=== PATIENT | male | born 1990 | race Caucasian/White ===

== ENCOUNTER 2018-04-17 11:23 | Emergency (ER) | payer OTHER ==
[~2018-04-17] VITALS: Ht 175.3 cm; Wt 95.0 kg
[2018-04-17] MEDS ORDERED: HYDROGEN PEROXIDE 118 ML SOLUTION TP ONE (12:45)
[2018-04-17] MEDS ORDERED: CARBAMIDE PEROXIDE 6.5% 15 ML OTIC SOLUTION AD ONE (12:45)
[2018-04-17 14:03] VITALS: BP 135/79
== END 2018-04-17 14:09 | disposition home or self-care (01) ==
LOC: EMS 11:24
DX: H61.21 Impacted cerumen, right ear (principal); R03.0 Elevated blood-pressure reading, without diagnosis of hypertension
CPT/HCPCS: 69209

== ENCOUNTER 2019-09-17 19:50 | Emergency (ER) | payer OTHER ==
[~2019-09-17] VITALS: Ht 175.3 cm; Wt 100.0 kg
[2019-09-17] MEDS ORDERED: DIPH25CA85 PO (20:00)
[2019-09-17] MEDS ORDERED: DOXYCYCLINE HYCLATE 100 MG CAPSULE PO ONE (20:45)
[2019-09-17] MEDS ORDERED: DiphenhydrAMINE HCL 25 MG CAPSULE PO ONE (20:45)
[2019-09-17] MEDS ORDERED: PERTUSS(ACELL),DIPH,TET VAC/PF 0.5 ML VIAL IM ONE (20:45)
[2019-09-17 21:30] VITALS: BP 135/82
== END 2019-09-17 22:12 | disposition home or self-care (01) ==
LOC: EMS 19:53
DX: L03.115 Cellulitis of right lower limb (principal)
CPT/HCPCS: 90471; 90715

== ENCOUNTER 2020-05-21 10:25 | Emergency (ER) | payer OTHER ==
[~2020-05-21] VITALS: Ht 170.2 cm; Wt 102.3 kg
[~2020-05-21 10:25] MED LIST: DIPH25CA85 PO
[2020-05-21 11:26] LABS: COVID AG,FIA SOURCE NASOPHARYNGEAL
[2020-05-21] MEDS ORDERED: IBUPROFEN 600 MG TABLET PO ONE (11:30)
[2020-05-21] MEDS ORDERED: AMOX TR/POT CLAV 875 MG/125 MG TABLET PO ONE (11:30)
[2020-05-21 13:32] VITALS: BP 115/74
== END 2020-05-21 13:36 | disposition home or self-care (01) ==
LOC: EMS 10:41
DX: K04.7 Periapical abscess without sinus (principal); Z20.822 Contact with and (suspected) exposure to COVID-19
CPT/HCPCS: 87426; 87430; 99283